=== PATIENT | female | born 1990 ===

== ENCOUNTER 2024-03-22 13:15 | Outpatient (RCR) | payer OTHER, SELFPAY ==
--- NOTE | 2024-03-22 14:14 | HO.PHP ---
[facility] staff members reached out to Ruth due to her leaving after community meeting and not attending the first group of the day. Ruth disclosed that she would like to discharge the program because there were too many people. Ruth stated her anxiety increased and she had a panic attack. [facility] staff member explored any safety concerns, in which she reported no concerns around SI, plan or intent. Ruth also has providers through [facility]: Nadia Dupont and Siobhan Sarkar.
== END 2024-03-22 23:59 | disposition home or self-care (01) ==
LOC: HO.PHPA 13:15
PROVIDERS: Visit Provider Psychiatry & Neurology Psychiatry
DX: F34.1 Dysthymic disorder (principal); F90.9 Attention-deficit hyperactivity disorder, unspecified type; F63.3 Trichotillomania; F41.1 Generalized anxiety disorder
CPT/HCPCS: 90791